=== PATIENT | female | born 1990 | race Caucasian/White ===

== ENCOUNTER 2016-09-27 08:26 | Emergency (ER) | payer OTHER ==
--- NOTE | 2016-09-27 11:43 | ED CLINICAL REPORT ---
Clinical Report - Physicians/Mid Levels [facility] [address] [place] [address] 09/27/2016 8:28 [id number] Time Seen: 09:02 Sep 27 2016. Arrived- By private vehicle. Historian- patient. HISTORY OF PRESENT ILLNESS Chief Complaint: DYSURIA and VAGINAL DISCHARGE. This started today This started just prior to arrival. ( Started having a fishy smell discharge and painful urination. Same symptoms and pains as last UTI.). She has had abdominal pain. No spotting, hematuria, abnormal bleeding, flank pain or fever. Last oral intake by patient was dinner. and still present. The symptoms are described as moderate. Modifying factors- worsened by urination. Not relieved by anything. The patient has had moderate abdominal pain. The pain is described as located in the lower abdomen. She has had a moderate amount of white, malodorous vaginal discharge. She has had pain with urination and urgency of urination. The patient has had urinary frequency. Sexually active. (Has perirectal itching consistent with prior pinworm infection. Itching worse at night.). Denies current . Similar symptoms previously: As bad. Diagnosis: UTI (yeast infection). Recent medical care: Not recently seen/assessed. REVIEW OF SYSTEMS No nausea, vomiting, diarrhea, black stools or fever. No chills, sore throat, cough, difficulty breathing or chest pain. No skin rash. All systems otherwise negative, except as recorded above. PAST HISTORY ( No history of diabetes mellitus or hypertension. No history of pelvic inflammatory disease, endometriosis or sexually transmitted disease. Immunizations: up-to-date. Last normal menstrual period- 3 weeks ago.). SOCIAL HISTORY Occasional alcohol use. ADDITIONAL NOTES The nursing notes have been reviewed. PHYSICAL EXAM Vital Signs: 09/27/2016 08:41 BP: 137/88. HR: 90. RR: 18. O2 saturation: 100%. Temp: 98.1 F. Appearance: Alert. No acute distress. Anxious. HEENT: Normal external inspection. ENT: Pharynx normal. Neck: Neck supple. CVS: Heart sounds normal. Respiratory: No respiratory distress. Breath sounds normal. Chest nontender. Abdomen: Soft. Mild tenderness in the suprapubic area and lower abdomen. Bowel sounds normal. Back: Normal external inspection. No CVA tenderness. : External inspection normal. A moderate amount of thick, white and yellow vaginal discharge present. No vaginal bleeding. No cervicitis. Bimanual exam normal. Rectal: (erthema around the anus , no worms seen.). Skin: Normal skin color. No rash. Extremities: Extremities nontender. Neuro: Oriented X 3. Mood/affect normal. No motor deficit. LABS, X-RAYS, AND EKG Laboratory Tests: UA-Culture if indicated: (GEOVANNA: 09/27/2016 08:40) ( [facility]/27/2016 09:19) Final results Test Result Flag Units (Reference) URINE COLOR YELLOW URINE APPEARANCE SL CLOUDY URINE GLUCOSE NEGATIVE (NEGATIVE) URINE BILIRUBIN NEGATIVE (NEGATIVE) URINE KETONE NEGATIVE (NEGATIVE) URINE SPECIFIC GRAVITY 1.015 (1.010-1.030) URINE PH 8.0 (5.0-8.0) URINE PROTEIN NEGATIVE (NEGATIVE) URINE UROBILINOGEN 0.2 EU/dL (0.2-1.0) URINE NITRITE NEGATIVE (NEGATIVE) URINE BLOOD NEGATIVE (NEGATIVE) URINE LEUK ESTERASE POSITIVE (NEGATIVE) URINE RBC 0-1 rbc/hpf (0-1) URINE WBC 5-10 wbc/hpf (0-1) URINE EPITHELIAL CELLS 5-10 EPI/hpf (0-5) URINE BACTERIA MODERATE (2+ TO 3+) (NONE SEEN) URINE COMMENT CULTURE INDICATED URINE CULTURES ARE SET-UP BASED ON THE FOLLOWING CRITERIA:POSITIVE NITRITEPOSITIVE LEUKOCYTE ESTERASEGREATER THAN 10 WHITE BLOOD CELLSMODERATE (2+) OR GREATER BACTERIA Culture, Urine: (GEOVANNA: 09/27/2016 08:40) ( [facility] [place] 09/29/2016 09:48) Final results Test Result Flag Units (Reference) CULTURE, URINE DATE: 09/29/16 NO SIGNIFICANT ISOLATION: NO SIGNIFICANT ISOLATION PRELIM REPORT: FINAL REPORT Wet Prep: (GEOVANNA: 09/27/2016 10:20) ( [facility] 09/27/2016 11:20) Final results SPECIMEN DESCRIPTION: SWAB Test Result Flag Units (Reference) WET MOUNT CLUE CELLS:: NONE EPITHELIAL CELLS: 2+ -- SOURCE?: CERVIX WHITE BLOOD CELLS: MODERATE POLY TRICHOMONAS:: NONE -- YEAST:: NONE . PROGRESS AND PROCEDURES Course of Care: Rocephin 250 mg IM Zithromax 1g po Patient is stable. Pt insistent on pinworms recurrence. Will treat to see if problem resolves. Patient/family counseled. Disposition: Discharged. Condition: stable. CLINICAL IMPRESSION Acute urinary tract infection with cystitis. Pinworms Vaginal discharge. INSTRUCTIONS Warnings: Further evaluation is necessary. GENERAL WARNINGS: Return or contact your physician immediately if your condition worsens or changes unexpectedly, if not improving as expected, or if other problems arise. Prescription Medications: Hydrocodone/APAP 5mg/325mg: take 1 to 2 orally every 6 hours as needed for pain. Dispense fifteen (15). No refills. Pyridium 200 mg: take 1 orally every 8 hours as needed for urinary problems. Dispense six (6). No refills. Substitution is permissible. Cipro 500 mg: take 1 tab orally every 12 hours for 7 days. Dispense fourteen (14). No refills. Substitution is permissible. Diflucan 150 mg tablet: take 1 tablet orally today. No refills. Substitution is permissible. (for yeast infection due to antibiotics.) Albendazole 400 mg po today , then again in 1 week for symptoms. # 2. Follow-up: Follow up with your doctor Friday in three days. Call for an appointment. Reason for referral: follow up cultures. (Electronically signed by Hany Nguyen MD 09/29/2016 11:10)
--- NOTE | 2016-09-27 11:43 | ED ORDER SUMMARY ---
..... Patient: VARGHESE LEON OrderSheet [facility] VisitID: [id number] [place] [address] 26y, F Registration Date/Time: 09/27/2016 ORDER SHEET Weight: 81.6 kg (stated) Allergies: NKDA GENERAL ORDERS: UA-Culture if indicated Urgent (08:52 09/27/2016 Hernan verbal order read back to Fiona GALINDO) (Ack 8:54 LWhalen R.N.) (Ack 8:56 Hernan) (9:34 LWhalen R.N.) GC/Chlamydia (Cervix) (swab) Urgent (09:17 09/27/2016 Greta GALINDO) (9:34 LWhalen R.N.) Wet Prep (Cervix) (swab) Urgent (09:18 09/27/2016 Greta GALINDO) (9:34 LWhalen R.N.) Pelvic Exam Setup (09:18 09/27/2016 Greta GALINDO) (9:34 LWhalen R.N.) MEDICATION ORDERS: Zithromax PO 1000 mg (NOW) (11:36 09/27/2016 Greta GALINDO) (Ack 11:45 LWhalen R.N.) (12:00 LWhalen R.N.) Rocephin IM 250 mg (NOW) (11:36 09/27/2016 Greta GALINDO) (Ack 11:45 LWhalen R.N.) (12:00 LWhalen R.N.) IV FLUIDS: ORDER SHEET NOTES: [Electronically signed by Bety Blackwood R.N. (18:56 09/27/2016)] [Electronically signed by Hany Nguyen MD (11:10 09/29/2016)] [Electronically locked/signed by Bety Blackwood R.N. (18:56 09/27/2016)]
--- NOTE | 2016-09-27 11:43 | ED ORDER SUMMARY ---
..... Patient: VARGHESE LEON OrderSheet [facility] VisitID: [id number] [place] [address] 26y, F Registration Date/Time: 09/27/2016 ORDER SHEET Weight: 81.6 kg (stated) Allergies: NKDA GENERAL ORDERS: UA-Culture if indicated Urgent (08:52 09/27/2016 Hernan verbal order read back to Fiona GALINDO) (Ack 8:54 LWhalen R.N.) (Ack 8:56 Hernan) (9:34 LWhalen R.N.) GC/Chlamydia (Cervix) (swab) Urgent (09:17 09/27/2016 Greta GALINDO) (9:34 LWhalen R.N.) Wet Prep (Cervix) (swab) Urgent (09:18 09/27/2016 Greta GALINDO) (9:34 LWhalen R.N.) Pelvic Exam Setup (09:18 09/27/2016 Greta GALINDO) (9:34 LWhalen R.N.) MEDICATION ORDERS: Zithromax PO 1000 mg (NOW) (11:36 09/27/2016 Greta GALINDO) (Ack 11:45 LWhalen R.N.) (12:00 LWhalen R.N.) Rocephin IM 250 mg (NOW) (11:36 09/27/2016 Greta GALINDO) (Ack 11:45 LWhalen R.N.) (12:00 LWhalen R.N.) IV FLUIDS: ORDER SHEET NOTES: [Electronically signed by Bety Blackwood R.N. (18:56 09/27/2016)] [Electronically signed by Hany Nguyen MD (11:10 09/29/2016)] [Electronically locked/signed by Bety Blackwood R.N. (18:56 09/27/2016)]
--- NOTE | 2016-09-27 11:43 | ED NURSING NOTES ---
Clinical Report - Nurses [facility] [address] [place] [address] 09/27/2016 8:28 [id number] Triage time 08:41 Sep 27 2016. Acuity: LEVEL 3. Chief Complaint: PAINFUL URINATION, URGENCY and FREQUENCY. JANAY COMA SCORE: Campbell Coma Scale: 15- eyes open spontaneously (4); best verbal response- oriented x 4 (5); best motor response- obeys commands (6). --08:46 Bety Blackwood R.N. 08:41 09/27/16. BP: 137/88. HR: 90. RR: 18. O2 saturation: 100%. Temp: 98.1 F. Pain level now 3/10. --08:46 Bety Blackwood R.N. Weight: 81.6 kg stated. Height/Length: 65 inches Per Patient. BMI: 30. --08:44 Bety Blacwkood R.N. Medications Ibuprofen Oral, as needed. --08:41 Bety Blackwood R.N. Allergies NKDA. --08:41 Bety Blackwood R.N. History Arrived by private vehicle. Historian: patient. This started just prior to arrival. ( Started having a fishy smell discharge and painful urination. Same symptoms and pains as last UTI.). She has had abdominal pain. No spotting, hematuria, abnormal bleeding, flank pain or fever. Last oral intake by patient was dinner. PAST MEDICAL HX: No history of diabetes mellitus or hypertension. No history of pelvic inflammatory disease, endometriosis or sexually transmitted disease. Immunizations: up-to-date. Last normal menstrual period- 3 weeks ago. SOCIAL HX: Never smoker. Occasional alcohol use. No drug use. SELF HARM ASSESSMENT: A self harm assessment was performed. The patient answered "no" to the question "Have you recently felt down, depressed, or hopeless?" and "Do you have thoughts of harming or killing yourself?". FALL RISK ASSESSMENT: Fall risk assessment completed. No fall risk identified. NUTRITIONAL RISK ASSESSMENT: The nutritional risk assessment revealed no deficiencies. FUNCTIONAL ASSESSMENT: Functional assessment: no impairments noted. LEARNING NEEDS ASSESSMENT: The learning needs assessment revealed no barriers. ABUSE ASSESSMENT: Abuse assessment: (yes) The patient was asked "Do you feel safe in your home?". SKIN INTEGRITY ASSESSMENT: Skin integrity risk assessment completed. No skin integrity risk identified. --08:46 Bety Blackwood R.N. PROBLEMS: UTI - Urinary Tract Infection. Headaches. --08:41 Bety Blackwood R.N. ADDITIONAL SURGERIES: Mclean Teeth Removal. --08:41 Bety Blackwood R.N. Interventions ID band on patient. --08:46 Bety Blackwood R.N. PHYSICAL ASSESSMENT Ambulatory to room. GENERAL / NEURO / PSYCH: Alert. Oriented X 4. Appears in no acute distress. HEENT: Mucous membranes are pink. RESPIRATORY: Respirations not labored. Breath sounds within normal limits. CVS: Normal heart rate and rhythm. Capillary refill less than 2 seconds. GI / : Abdomen soft and nontender. Bowel sounds within normal limits. A scant amount of thick, white and malodorous vaginal discharge present. SKIN: Skin is warm and dry. --08:46 Bety Blackwood R.N. NURSING PROGRESS NOTES Pulse oximeter and NIBP monitor placed on patient. Head of bed elevated 90 degrees. Reassurance given. Call light placed in reach. Side rails up x 1. Bed placed in lowest position. Brakes of bed on. --08:46 Bety Blackwood R.N. DISPOSITION / DISCHARGE 12:00 09/27/2016 Zithromax PO Capsules 1000 mg given. Allergies verified and confirmed 5 rights. --12:00 Btey Blackwood R.N. 12:00 09/27/2016 Rocephin (CefTRIAXone Sodium) IM 250 mg given. Given in the right gluteus roxanna. Allergies verified and confirmed 5 rights. --12:00 Bety Blackwood R.N. Condition at departure: improved. No learning barriers present. Discharge instructions provided and reviewed with the patient. Reviewed warnings. Reviewed medication(s). Treatments reviewed. Reviewed referrals. Work note given. Patient verbalized understanding. Written instructions provided in Divehi. The patient was discharged home and accompanied by spouse. She left the Emergency Department ambulatory and via private vehicle. Patient driving. --12:01 Bety Blackwood R.N. 11:59 09/27/16. BP: 120/75. HR: 76. RR: 18. O2 saturation: 99%. Temp: 98.4 F. Pain level now 5/10. --12: Bety Blackwood R.N. Departure time: 12:Sep 27 2016. --12:01 Bety Blackwood R.N. Cardiac rhythm. --12:01 Bety Blackwood R.N. Locked/Released at 09/27/2016 18:56 by Bety Blackwood R.N.
--- NOTE | 2016-09-29 11:11 | ED MED RECONCILIATION SUMMARY ---
Patient: VARGHESE LEON Medication Reconciliation Report [facility] VisitID: [id number] [address] [place] [address] 26y, F Registration Date/Time: 09/27/2016 Weight: 81.6 kg Height/Length: 65 in. BMI: 30.0 ALLERGIES: NKDA The patient's Home Medications are listed below: THE FOLLOWING MEDICATIONS NEED TO BE RECONCILED: Ibuprofen Oral The source(s) of the original Home Medication information: Not obtained. The following Medications were given to the patient in the Emergency Department: Zithromax [PO] PO 1000 mg, administered: 09/27/2016 12:00:00 PM Rocephin [IM] IM 250 mg, administered: 09/27/2016 12:00:00 PM The following Medications were prescribed to the patient: Hydrocodone/APAP 5mg/325mg: take 1 to 2 orally every 6 hours as needed for pain. Dispense fifteen (15). No refills. -- Hany Nguyen MD Albendazole 400 mg po today , then again in 1 week for symptoms. # 2. -- Hany Nguyen MD Pyridium 200 mg: take 1 orally every 8 hours as needed for urinary problems. Dispense six (6). No refills. Substitution is permissible. -- Hany Nguyen MD Cipro 500 mg: take 1 tab orally every 12 hours for 7 days. Dispense fourteen (14). No refills. Substitution is permissible. -- Hany Nguyen MD Diflucan 150 mg tablet: take 1 tablet orally today. No refills. Substitution is permissible.(for yeast infection due to antibiotics.) -- Hany Nguyen MD
--- NOTE | 2016-09-29 11:11 | ED DISCHARGE INSTRUCTIONS ---
Patient: VARGHESE LEON General Instructions [facility] VisitID: [id number] [place] [address] 26y, F Registration Date/Time: 09/27/2016 Acute urinary tract infection with cystitis. Pinworms Vaginal discharge. INSTRUCTIONS Warnings: Further evaluation is necessary. GENERAL WARNINGS: Return or contact your physician immediately if your condition worsens or changes unexpectedly, if not improving as expected, or if other problems arise. Prescription Medications: Hydrocodone/APAP 5mg/325mg: take 1 to 2 orally every 6 hours as needed for pain. Dispense fifteen (15). No refills. Pyridium 200 mg: take 1 orally every 8 hours as needed for urinary problems. Dispense six (6). No refills. Substitution is permissible. Cipro 500 mg: take 1 tab orally every 12 hours for 7 days. Dispense fourteen (14). No refills. Substitution is permissible. Diflucan 150 mg tablet: take 1 tablet orally today. No refills. Substitution is permissible. (for yeast infection due to antibiotics.) Albendazole 400 mg po today , then again in 1 week for symptoms. # 2. Follow-up: Follow up with your doctor Friday in three days. Call for an appointment. Reason for referral: follow up cultures. ADDITIONAL INFORMATION Bladder Infection,Female (Adult) A bladder infection ("cystitis" or "UTI") usually causes a constant urge to urinate and a burning when passing urine. Urine may be cloudy, smelly or dark. There may be pain in the lower abdomen. A bladder infection occurs when bacteria from the vaginal area enter the bladder opening (urethra). This can occur from sexual intercourse, wearing tight clothing, dehydration and other factors. Home Care: Drink lots of fluids (at least 6-8 glasses a day, unless you must restrict fluids for other medical reasons). This will force the medicine into your urinary system and flush the bacteria out of your body. Avoid sexual intercourse until your symptoms are gone. Avoid caffeine, alcohol and spicy foods. These can irritate the bladder. A bladder infection is treated with antibiotics. You may also be given Pyridium (generic = phenazopyridine) to reduce the burning sensation. This medicine will cause your urine to become a bright orange color. The orange urine may stain clothing. You may wear a pad or panty-liner to protect clothing. Preventing Future Infections: Always wipe from front to back after a bowel movement. Keep the genital area clean and dry. Drink plenty of fluids each day to avoid dehydration. Both sexual partners should wash before intercourse. Urinate right after intercourse to flush out the bladder. Wear cotton underwear and cotton-lined panty hose; avoid tight-fitting pants. If you are on control pills and are having frequent bladder infections, discuss with your doctor. Follow Up: Return to this facility or see your doctor if ALL symptoms are not gone after three days of treatment. Get Prompt Medical Attention if any of the following occur: Fever of 100.4F (38C) or higher, or as directed by your healthcare provider No improvement by the third day of treatment Increasing back or abdominal pain Repeated vomiting; unable to keep medicine down Weakness, dizziness or fainting Vaginal discharge Pain, redness or swelling in the labia (outer vaginal area) You have been given the following additional information: Bladder Infection, Female (Adult) (Electronically signed by Hany Nguyen MD 09/29/2016 11:10)
--- NOTE | 2016-09-29 11:11 | ED MAR SUMMARY ---
..... Medication Administration Record [facility] [address] [place] [address] Patient: VARGHESE LEON Visit ID: [id number] 26y, F Weight: 81.6 kg Height/Length: 65 in BMI: 30 ALLERGIES: NKDA Given 12:00 09/27/2016 Bety Blackwood, RMarcioNMarcio Medication Administered: ZITHROMAX [PO], Dose: 1000 mg Capsules PO. Medication Ordered: Zithromax PO 1000 mg (NOW). Given 12:00 09/27/2016 Bety Blackwood, R.N. Medication Administered: ROCEPHIN [IM] (CEFTRIAXONE SODIUM), Dose: 250 mg IM. Medication Ordered: Rocephin IM 250 mg (NOW).
--- NOTE | 2016-09-29 11:11 | ED MAR SUMMARY ---
..... Medication Administration Record [facility] [address] [place] [address] Patient: VARGHESE LEON Visit ID: [id number] 26y, F Weight: 81.6 kg Height/Length: 65 in BMI: 30 ALLERGIES: NKDA Given 12:00 09/27/2016 Bety Blackwood, RMarcioNMarcio Medication Administered: ZITHROMAX [PO], Dose: 1000 mg Capsules PO. Medication Ordered: Zithromax PO 1000 mg (NOW). Given 12:00 09/27/2016 Bety Blackwood, R.N. Medication Administered: ROCEPHIN [IM] (CEFTRIAXONE SODIUM), Dose: 250 mg IM. Medication Ordered: Rocephin IM 250 mg (NOW).
--- NOTE | 2016-09-29 11:11 | ED MED RECONCILIATION SUMMARY ---
Patient: VARGHESE LEON Medication Reconciliation Report [facility] VisitID: [id number] [address] [place] [address] 26y, F Registration Date/Time: 09/27/2016 Weight: 81.6 kg Height/Length: 65 in. BMI: 30.0 ALLERGIES: NKDA The patient's Home Medications are listed below: THE FOLLOWING MEDICATIONS NEED TO BE RECONCILED: Ibuprofen Oral The source(s) of the original Home Medication information: Not obtained. The following Medications were given to the patient in the Emergency Department: Zithromax [PO] PO 1000 mg, administered: 09/27/2016 12:00:00 PM Rocephin [IM] IM 250 mg, administered: 09/27/2016 12:00:00 PM The following Medications were prescribed to the patient: Hydrocodone/APAP 5mg/325mg: take 1 to 2 orally every 6 hours as needed for pain. Dispense fifteen (15). No refills. -- Hany Nguyen MD Albendazole 400 mg po today , then again in 1 week for symptoms. # 2. -- Hany Nguyen MD Pyridium 200 mg: take 1 orally every 8 hours as needed for urinary problems. Dispense six (6). No refills. Substitution is permissible. -- Hany Nguyen MD Cipro 500 mg: take 1 tab orally every 12 hours for 7 days. Dispense fourteen (14). No refills. Substitution is permissible. -- Hany Nguyen MD Diflucan 150 mg tablet: take 1 tablet orally today. No refills. Substitution is permissible.(for yeast infection due to antibiotics.) -- Hany Nguyen MD
== END 2016-09-27 12:00 | disposition home or self-care (01) ==
LOC: ED SRH 08:26
DX: N30.00 Acute cystitis without hematuria (principal); N89.8 Other specified noninflammatory disorders of vagina; B80 Enterobiasis
CPT/HCPCS: 90004; 90195; 90469; 91227; 91228